=== PATIENT | male | born 1955 | race Caucasian/White ===

== ENCOUNTER 2016-08-28 02:48 | Emergency (ER) | payer OTHER ==
[~2016-08-28 02:48] MED LIST: ATORVASTATIN CA40 MG PO; BUFFERIN LOW DO81 MG PO; LASIX40 MG PO; LISINOPRIL10 MG PO; LOPRESSOR 25MG25 MG PO; PERCOCET 325 MG1 TA2 PO
--- NOTE | 2016-08-28 03:04 | ED GI/GU/ABDOMINAL COMPLAINT ---
History of Present Illness General Chief Complaint: Abdominal Pain/Flank Pain Stated Complaint: R FLANK PAIN Source: patient Exam Limitations: no limitations Vital Signs & Intake/Output Vital Signs & Intake/Output Vital Signs Date Time Temp Pulse Resp B/P B/P Pulse O2 O2 Flow FiO2 Mean Ox Delivery Rate 08/28 0533 97.8 97 18 160/78 98 Room Air 08/28 0305 97.6 107 18 159/82 97 Room Air Allergies Coded Allergies: Penicillins (UNKNOWN 08/28/16) Reconcile Medications Atorvastatin Calcium (Lipitor) 40 MG TAB 40 MG PO AT BEDTIME cholestrol Furosemide (Lasix) 40 MG TAB 1 TAB PO DAILY [facility] Lisinopril 10 MG TAB 10 MG PO DAILY [facility] HEALTH Metoprolol Tartrate (Lopressor) 25 MG TAB 1 TAB PO BID [facility]ART [facility] Triage Nurses Notes Reviewed? yes Onset: Abrupt Duration: hour(s): Timing: single episode today Quality/Severity: sharpness Location: right flank Radiation: right groin Activities at Onset: none Prior Abdominal Problems: none Modifying Factors: Improves With: rest. Worsens With: urinating. Associated Symptoms: nausea/vomiting HPI: 61-year-old gentleman with a history of NC and coronary artery disease presents with right lower quadrant pain radiating to his right groin and mild nausea. The symptoms awoke him early this morning. He states the pain is 6 out of 10 at present. At onset, the pain was worse. He notes mild nausea, but no vomiting, fever, diarrhea, chest pain, shortness of breath. He is otherwise well. Past History Travel History Traveled to [place] past 21 day No Medical History Any Pertinent Medical History? see below for history Neurological: NONE EENT: NONE Cardiovascular: NONE Respiratory: NONE Gastrointestinal: inguinal hernia Hepatic: NONE Renal: NONE Musculoskeletal: NONE Psychiatric: NONE Endocrine: NONE History of MRSA: No History of VRE: No History of CDIFF: No Surgical History Surgical History: non-contributory Psychosocial History Who do you live with Patient/Self What is your primary language Congolese Family History Hx Contributory? No Review of Systems Review of Systems Constitutional: Reports: no symptoms. EENTM: Reports: no symptoms. Respiratory: Reports: no symptoms. Cardiovascular: Reports: no symptoms. GI: Reports: no symptoms. Genitourinary: Reports: no symptoms. Musculoskeletal: Reports: no symptoms. Skin: Reports: no symptoms. Neurological/Psychological: Reports: no symptoms. Hematologic/Endocrine: Reports: no symptoms. Immunologic/Allergic: Reports: no symptoms. All Other Systems: Reviewed and Negative Physical Exam Physical Exam General Appearance: well developed/nourished, mild distress Head: atraumatic, normal appearance Eyes: Bilateral: normal appearance. Ears, Nose, Throat, Mouth: hearing grossly normal Neck: normal inspection, supple, full range of motion Respiratory: normal breath sounds, chest non-tender, no respiratory distress, quiet respiration, lungs clear Cardiovascular: regular rate/rhythm Gastrointestinal: normal bowel sounds, soft, non-tender, no organomegaly Back: normal inspection Extremities: normal range of motion Neurologic/Psych: no motor/sensory deficits, awake, alert, oriented x 3 Skin: intact, normal color, warm/dry Core Measures ACS in differential dx? No Severe Sepsis Present: No Septic Shock Present: No Progress Differential Diagnosis: appendicitis, biliary colic, cholecystitis, diverticulitis, gastritis, hepatitis, pyelonephritis, ureterolithiasis, urethritis, UTI/pyelo Plan of Care: Orders Procedure Date/time Status URINALYSIS 08/28 302 Complete TROPONIN LEVEL 08/28 302 Complete LIPASE 08/28 302 Complete HEPATIC FUNCTION PANEL 08/28 302 Complete CBC WITHOUT DIFFERENTIAL 08/28 302 Complete BASIC METABOLIC PANEL 08/28 302 Complete AMYLASE 08/28 302 Complete EKG 08/28 302 Active Laboratory Tests 08/28/16 0435: Urine Color YEL, Urine Clarity CLEAR, Urine pH 6.0, Ur Specific [place] >= 1.030 , Urine Protein TRACE H, Urine Ketones NEG, Urine Nitrite NEG, Urine Bilirubin NEG, Urine Urobilinogen 0.2, Ur Leukocyte Esterase NEG, Ur Microscopic SEDIMENT EXAMINED, Urine RBC 3-5, Urine WBC 1-3 H, Ur Epithelial Cells FEW, Urine Crystals 1+ CA OX H, Urine Bacteria MANY H, Urine Hemoglobin SMALL H, Urine Glucose 100 H 08/28/16 0310: Anion Gap 15, Estimated GFR > 60, BUN/Creatinine Ratio 16.7, Glucose 131 H, Calcium 8.8, Total Bilirubin 0.4, Direct Bilirubin 0.3, AST 34, ALT 50, Alkaline Phosphatase 108, Troponin I < 0.01, Total Protein 6.3, Albumin 3.9, Amylase 42, Lipase 256, CBC w Diff NO MAN DIFF REQ, RBC 4.75, MCV 89.1, MCH 30.0, RDW 13.1, MPV 8.8, Gran % 67.9, Lymphocytes % 19.8 L, Monocytes % 8.6, Eosinophils % 3.1, Basophils % 0.6, Absolute Granulocytes 5.0, Absolute Lymphocytes 1.5, Absolute Monocytes 0.6, Absolute Eosinophils 0.2, Absolute Basophils 0, PUBS MCHC 33.7 Diagnostic Imaging: Viewed by Me: CT Scan. Discussed w/RAD: CT Scan. Radiology Impression: abd/pelvic ct... chronic perinephric stranding... no acute change. full report below. Initial ED EKG: normal axis, normal intervals, normal p-waves, normal QRS complex, normal sinus rhythm Comments: PATIENT: RAYRAY GUERRIER PRESENT AGE: 61 PATIENT ACCOUNT NO: [id number] : 56 LOCATION: [facility] ORDERING PHYSICIAN: ANDREW RIOS MD SERVICE DATE: 08/28/16 EXAM TYPE: CAT - CT ABD & PELVIS W/O IV CONTRAS EXAMINATION: CT ABDOMEN AND PELVIS WITHOUT CONTRAST CLINICAL INFORMATION: Right lower quadrant pain. COMPARISON: 06/17/2015 TECHNIQUE: Multidetector volumetric imaging was performed from the superior aspect of the liver through the pubic symphysis. Sagittal and coronal reformatted images were obtained on the technologist's workstation. DLP: 818 mGy-cm FINDINGS: LUNG BASES: The visualized lung bases are unremarkable. LIVER, GALLBLADDER, AND BILIARY TREE: The liver is normal in size, shape, and attenuation. No focal hepatic lesion or biliary ductal dilatation is present. The gallbladder is unremarkable with no evidence of radiopaque gallstones, gallbladder wall thickening, or obvious pericholecystic inflammatory changes. PANCREAS: Unremarkable. SPLEEN: Unremarkable. ADRENAL GLANDS: Unremarkable. KIDNEYS AND URETERS: The kidneys are normal in size, shape, and attenuation. No hydronephrosis, hydroureter, or calculi seen. Symmetric chronic perinephric stranding. Right midpole 1.3 cm cyst. BLADDER: Unremarkable. GASTROINTESTINAL TRACT: The stomach and small bowel are unremarkable. No dilated loops of bowel or evidence of obstruction. Fecalization of the distal ileum suggests slow transit. Normal appendix. There is diverticulosis of the descending and sigmoid colon. No diverticulitis. No free air or free fluid. ABDOMINAL WALL: No significant hernia is appreciated. LYMPH NODES: Normal. VASCULAR: Retroaortic left renal vein. Scattered atherosclerotic calcifications. PELVIC VISCERA: The prostate and seminal vesicles are unremarkable. OSSEOUS STRUCTURES: No acute or suspicious osseous abnormality. Mild degenerative changes of the hips. Degenerative changes of the spine. IMPRESSION: No acute finding of the abdomen or pelvis. No hydronephrosis or nephrolithiasis. Chronic perinephric stranding. Normal appendix. Colonic diverticulosis without diverticulitis. DICTATED BY: NASRA ANNE MD DATE/TIME DICTATED:08/28/16403 SEWER PIPE LAYER:AB DATE/TIME TRANSCRIBED:08/28/16403 CONFIDENTIAL, DO NOT COPY WITHOUT APPROPRIATE AUTHORIZATION. <Electronically signed in Other Vendor System> SIGNED BY: NASRA ANNE MD 08/28 Departure Departure Disposition: HOME OR SELF CARE Condition: Stable Clinical Impression Primary Impression: Abdominal pain Referrals: GHASSAN TEE,KEVIN Romo (PCP/Family) Departure Forms: Customer Survey General Discharge Information Comments pt well appearing in the ED... ct scan and labs negative... his history is most suggestive of passing a kidney stone. discussed at length. pt safe for discharge with close follow up advised.
[2016-08-28 03:17] LABS: ABSOLUTE BASOPHIL COUNT 0 /CUMM (0.0-0.2); ABSOLUTE EOSINOPHIL COUNT 0.2 /CUMM (0.0-0.7); ABSOLUTE LYMPH COUNT 1.5 /CUMM (1.2-3.4); ABSOLUTE MONOCYTE COUNT 0.6 /CUMM (0.10-0.60); BASOPHIL % 0.6 % (0.0-2.0); EOSINOPHIL % 3.1 % (0-5); GRANULOCYTE % 67.9 % (42.2-75.2); HEMATOCRIT 42.3 % (42-52); MEAN CORPUSCULAR HGB CONC 33.7 G/DL (33.0-37.0); MEAN CORPUSCULAR VOLUME 89.1 FL (80.0-94.0); MEAN PLATELET VOLUME 8.8 FL (7.4-10.4); PLATELET COUNT 217 /CUMM (130-400); RBC DISTRIBUTION WIDTH 13.1 % (11.5-14.5); RED BLOOD CELL CT 4.75 /CUMM (4.70-6.10); WHITE BLOOD CELL COUNT 7.4 /CUMM (4.8-10.8)
--- NOTE | 2016-08-28 04:09 | CT SCAN REPORT ---
EXAMINATION: CT ABDOMEN AND PELVIS WITHOUT CONTRAST CLINICAL INFORMATION: Right lower quadrant pain. COMPARISON: 06/17/2015 TECHNIQUE: Multidetector volumetric imaging was performed from the superior aspect of the liver through the pubic symphysis. Sagittal and coronal reformatted images were obtained on the technologist's workstation. DLP: 818 mGy-cm FINDINGS: LUNG BASES: The visualized lung bases are unremarkable. LIVER, GALLBLADDER, AND BILIARY TREE: The liver is normal in size, shape, and attenuation. No focal hepatic lesion or biliary ductal dilatation is present. The gallbladder is unremarkable with no evidence of radiopaque gallstones, gallbladder wall thickening, or obvious pericholecystic inflammatory changes. PANCREAS: Unremarkable. SPLEEN: Unremarkable. ADRENAL GLANDS: Unremarkable. KIDNEYS AND URETERS: The kidneys are normal in size, shape, and attenuation. No hydronephrosis, hydroureter, or calculi seen. Symmetric chronic perinephric stranding. Right midpole 1.3 cm cyst. BLADDER: Unremarkable. GASTROINTESTINAL TRACT: The stomach and small bowel are unremarkable. No dilated loops of bowel or evidence of obstruction. Fecalization of the distal ileum suggests slow transit. Normal appendix. There is diverticulosis of the descending and sigmoid colon. No diverticulitis. No free air or free fluid. ABDOMINAL WALL: No significant hernia is appreciated. LYMPH NODES: Normal. VASCULAR: Retroaortic left renal vein. Scattered atherosclerotic calcifications. PELVIC VISCERA: The prostate and seminal vesicles are unremarkable. OSSEOUS STRUCTURES: No acute or suspicious osseous abnormality. Mild degenerative changes of the hips. Degenerative changes of the spine. IMPRESSION: No acute finding of the abdomen or pelvis. No hydronephrosis or nephrolithiasis. Chronic perinephric stranding. Normal appendix. Colonic diverticulosis without diverticulitis.
[2016-08-28 05:33] VITALS: BP 160/78
== END 2016-08-28 05:33 ==
LOC: ERH 02:48
PROVIDERS: Pediatrics
DX: R10.31 Right lower quadrant pain (principal)
CPT/HCPCS: 74176; 81001; 93005; 93010; 96361; 96374; 96375; J1885; J2405